=== PATIENT | female | born 1955 | race Two or more races ===

== ENCOUNTER 2019-05-18 17:54 | Emergency (ER) | payer SELFPAY ==
[~2019-05-18] VITALS: Ht 149.9 cm; Wt 55.0 kg
[2019-05-18] MEDS ORDERED: IBUPROFEN 600MG TABLET PO STA (20:21)
[2019-05-18 20:57] VITALS: BP 125/86
== END 2019-05-18 21:00 | disposition home or self-care (01) ==
LOC: ER 17:54
DX: S70.01XA Contusion of right hip, initial encounter (principal); S70.11XA Contusion of right thigh, initial encounter; M25.531 Pain in right wrist; V03.99XA Pedestrian with other conveyance injured in collision with car, pick-up truck or van, unspecified whether traffic or nontraffic accident, initial encounter; Y93.89 Activity, other specified; Y92.89 Other specified places as the place of occurrence of the external cause; Y99.8 Other external cause status
CPT/HCPCS: 99282

== ENCOUNTER 2023-10-10 09:08 | Emergency (ER) | payer SELFPAY ==
[~2023-10-10] VITALS: Ht 160 cm; Wt 57.0 kg
[2023-10-10 09:17] VITALS: O2SAT 98
[2023-10-10 09:56] LABS: BASOPHILS % 0.4 % (0.0-2.0); EOSINOPHILS % 1.3 % (0.0-5.0); HEMATOCRIT. 42.1 % (36.0-48.0); LYMPHOCYTES % 18.2 % (20.0-50.0); MEAN CORPUSCULAR HEMOGLOBIN 28.6 pg (28.0-32.0); MEAN CORPUSCULAR HGB CONC 33.3 g/dL (31.0-37.0); MONOCYTES % 5.4 % (2.0-8.0); NEUTROPHILS % 74.7 % (40.0-76.0); PLATELET 305 x1000/uL (130-400); RED BLOOD CELL COUNT 4.89 mill/uL (4.2-5.4); RED CELL DISTRIBUTION WIDTH 12.5 % (11.6-14.6); WHITE BLOOD COUNT 5.3 x1000/uL (4.5-11.0)
[2023-10-10 10:22] LABS: ALANINE AMINOTRANSFERASE 13 IU/L (10-49); ALBUMIN 4.6 g/dL (3.2-4.8); ASPARTATE AMINOTRANSFERASE 20 IU/L (<34); CARBON DIOXIDE 26 mEq/L (21-32); CHLORIDE 106 mEq/L (98-107); CREATININE 0.6 mg/dL (0.6-1.0); GLUCOSE 102 mg/dL (70-105); POTASSIUM 4.1 mEq/L (3.5-5.1); PROTEIN TOTAL 7.7 g/dL (6.0-8.3); SODIUM 138 mEq/L (136-145); UREA NITROGEN BLOOD 14 mg/dL (9-23)
[2023-10-10 10:25] LABS: TROPONIN I HIGH SENSITIVITY < 4 ng/L (3.0-34)
[2023-10-10 10:28] LABS: CLARITY URINE CLEAR (CLEAR); COLOR URINE YELLOW (YELLOW); GLUCOSE URINE NEGATIVE (NEGATIVE); KETONES URINE 1+ (NEGATIVE); LEUKOCYTE ESTERASE URINE TRACE (NEGATIVE); NITRITE URINE NEGATIVE (NEGATIVE); OCCULT BLOOD URINE NEGATIVE (NEGATIVE); PH URINE 7.5 (4.5-8.0); PROTEIN URINE TRACE (NEGATIVE); SPECIFIC GRAVITY URINE 1.019 (1.005-1.030)
[2023-10-10 10:41] LABS: MUCUS URINE TRACE /lpf (< = 2+)
[2023-10-10 10:42] LABS: BACTERIA URINE TRACE; RBC URINE 0-2 /hpf (0-2); SQUAMOUS EPITHELIAL CELL URINE RARE /lpf (RARE/1+)
[2023-10-10 10:43] LABS: WBC URINE 0-2 /hpf (0-2)
[2023-10-10] MEDS: ONDANSETRON 4MG ODT PO STA (11:43)
[2023-10-10] MEDS: MAGNESIUM/ALUMINUM HYDROXIDE/SIMETHICONE 30ML UDC PO STA (11:43)
[2023-10-10] MEDS: DICYCLOMINE 10 MG/5 ML ORAL SYR PO STA (11:43)
[2023-10-10] MEDS: FAMOTIDINE 20MG TABLET PO ONE (11:45)
[2023-10-10] MEDS ORDERED: FAMO-135 MT (11:58)
[2023-10-10] MEDS ORDERED: ASPI-740 PO (11:58)
[2023-10-10 12:22] VITALS: BP 145/81; PULSE 77; RESP 17; TEMP 98.2
== END 2023-10-10 12:38 | disposition home or self-care (01) ==
LOC: ER 09:08
DX: K29.70 Gastritis, unspecified, without bleeding (principal); G43.909 Migraine, unspecified, not intractable, without status migrainosus
CPT/HCPCS: 80053; 81003; 83690; 85025; 84484; 36415; 71045; 93005; 99285; Q0162; Z7610